=== PATIENT | male | born 1960 | race American Indian/Alaskan Native ===

== ENCOUNTER 2020-01-12 11:26 | Observation (INO) | payer BC ==
[2020-01-12] MEDS ORDERED: MECLIZINE 25 MG TAB PO ONE (12:48)
[2020-01-12 13:13] LABS: Basophils % (Auto) 0.2 % (0.0-1.8); Eosinophils # (Auto) 0.2 K/mm3 (0.0-0.4); Hematocrit 45.8 % (35.5-45.6); Hemoglobin 15.3 gm/dl (11.8-15.2); Lymphocytes # (Auto) 1.9 K/mm3 (1.2-5.4); Lymphocytes % (Auto) 31.5 % (13.4-35.0); Mean Corpuscular HGB Conc 33 % (32-34); Mean Corpuscular Volume 84 fl (84-94); Monocytes # (Auto) 0.5 K/mm3 (0.0-0.8); Monocytes % (Auto) 7.8 % (0.0-7.3); Platelet Count 254 K/mm3 (140-440); Red Blood Count 5.45 M/mm3 (3.65-5.03); Red Cell Distribution Width 14.7 % (13.2-15.2)
--- NOTE | 2020-01-12 13:16 | Emergency Department Report ---
HPI - General Chief Complaint: Syncope Time Seen by Provider: 01/12/20 12:22 - HPI HPI: Room 21 The patient is a 59-year-old male present with a chief complaint of syncope. Patient states he developed frontal sinus pressure 01/08/2020. The patient sta rodney 01/10/2020 he developed dizziness while at work. Patient states the dizziness will come on with standing quickly. The patient states he told himself if his symptoms persisted he was his primary physician. Today when he awakened he continues to have the same dizziness so he went to his primary physician's office. The patient states he was there been evaluated and the primary physician was explaining to him about vertigo when he stood up got dizzy and had a syncopal episode. The patient was subsequently sent to the ED for further evaluation. Patient denied having chest pain headache or pain of any type. Patient denies shortness of breath. Patient admits to 7 episodes of nausea but denies vomiting. Patient denies melena or bright red blood per rectum. Patient currently denies complaints ED Past Medical Hx - Past Medical History Hx Hypertension: Yes - Surgical History Past Surgical History?: No - Family History Family history: no significant - Social History Smoking Status: Never Smoker Substance Use Type: None (Denies illicit drug use), Alcohol (Rarely) - Medications Home Medications: Home Medications Medication Instructions Recorded Confirmed Last Taken Type Cholecalciferol Vit D3 [Vitamin D3 50,000 unit PO QDAY 01/12/20 01/12/20 Unknown History 1,000 UNIT TAB] Olmesartan/Amlodipin/Hcthiazid 1 tab PO DAILY 01/12/20 01/12/20 Unknown History [Tribenzor 40-10-25 mg Tablet] Tadalafil [Cialis] 5 mg PO DAILY 01/12/20 01/12/20 Unknown History bisoproloL fumarate [Bisoprolol 10 mg PO DAILY 01/12/20 01/12/20 Unknown History Fumarate] ED Review of Systems ROS: Stated complaint: SYNCOPE Other details as noted in HPI Constitutional: no symptoms reported Eyes: vision change ENT: denies: throat pain Respiratory: denies: shortness of breath Cardiovascular: denies: chest pain Endocrine: no symptoms reported Gastrointestinal: denies: abdominal pain Genitourinary: denies: dysuria Musculoskeletal: denies: back pain Neurological: vertigo. denies: headache Physical Exam - Physical Exam Vital Signs: Vital Signs 01/12/20 11:36 Temperature 98.7 F Pulse Rate 50 L Respiratory 18 Rate Blood Pressure 146/77 O2 Sat by Pulse 100 Oximetry Physical Exam: GENERAL: The patient is well-developed well-nourished male lying on stretcher not appearing to be in acute distress. [] HEENT: Normocephalic. Atraumatic. Extraocular motions are intact. Patient has moist mucous membranes. There is no nystagmus NECK: Supple. Trachea midline CHEST/LUNGS: Clear to auscultation. There is no respiratory distress noted. HEART/CARDIOVASCULAR: Regular. There is no tachycardia. There is no gallop rub or murmur. ABDOMEN: Abdomen is soft, nontender. Patient has normal bowel sounds. There is no abdominal distention. SKIN: There is no rash. There is no edema. There is no diaphoresis. NEURO: The patient is awake, alert, and oriented. The patient is cooperative. The patient has no focal neurologic deficits. The patient has normal speech. Cranial nerves II through XII grossly intact. No dysmetria noted with [id number] bilaterally. MUSCULOSKELETAL: There is no evidence of acute injury. ED Course Vital Signs 01/12/20 11:36 Temperature 98.7 F Pulse Rate 50 L Respiratory 18 Rate Blood Pressure 146/77 O2 Sat by Pulse 100 Oximetry - Consultations Consultation #1: 01/12/20 11:22 Prehospital EKG sent to and discussed with Dr. Natarajan- no STEMI. LVH with strain pattern. Repeat EKG when patient arrives in ED ED Medical Decision Making - Lab Data Result diagrams: 01/12/20 12:58 01/12/20 12:58 Laboratory Tests 01/12/20 01/12/20 01/12/20 12:58 12:58 12:58 WBC 6.2 RBC 5.45 H Hgb 15.3 H Hct 45.8 H MCV 84 MCH 28 MCHC 33 RDW 14.7 Plt Count 254 Lymph % (Auto) 31.5 [place] % (Auto) 7.8 H Eos % (Auto) 3.0 Baso % (Auto) 0.2 Lymph # (Auto) 1.9 [place] # (Auto) 0.5 Eos # (Auto) 0.2 Baso # (Auto) 0.0 Seg Neutrophils % 57.5 Seg Neutrophils # 3.5 PT 13.0 INR 0.96 APTT 27.5 D-Dimer 149.43 Sodium 140 Potassium 4.8 Chloride 100.2 Carbon Dioxide 32 H Anion Gap 13 BUN 11 Creatinine 1.0 Estimated GFR > 60 BUN/Creatinine Ratio 11 Glucose 93 Calcium 10.2 Total Bilirubin 0.60 AST 23 ALT 20 Alkaline Phosphatase 75 Total Creatine Kinase 265 H CK-MB (CK-2) 5.4 H CK-MB (CK-2) Rel Index 2.0 Troponin T < 0.010 Total Protein 7.8 Albumin 4.2 Albumin/Globulin Ratio 1.2 - EKG Data -: EKG Interpreted by Me EKG shows normal: sinus rhythm Rate: normal - EKG Data When compared to previous EKG there are: previous EKG unavailable Interpretation: nonspecific ST-T wave amaury, LVH (With strain) - Differential Diagnosis Orthostasis, vertigo, syncope, PE, ACS, symptomatic anemia Critical care attestation.: If time is entered above; I have spent that time in minutes in the direct care of this critically ill patient, excluding procedure time. ED Disposition Clinical Impression: Syncope, Hypertension Disposition: DC-09 OP ADMIT IP TO THIS HOSP Is pt being admited?: Yes Does the pt Need Aspirin: Yes Condition: Fair Instructions: Syncope (ED), Hypertension (ED) Referrals: CORY STUBBS MD [Primary Care Provider] - 3-5 Days Time of Disposition: 16:05 (Hospitalist notified (Dr Richards))
[2020-01-12 13:20] LABS: INR 0.96 (0.87-1.13)
[2020-01-12 13:21] LABS: Partial Thromboplastin Time 27.5 Sec. (24.2-36.6)
[2020-01-12 13:38] LABS: Alanine Aminotransferase 20 units/L (7-56); Albumin 4.2 g/dL (3.9-5); BUN/Creatinine Ratio 11; Blood Urea Nitrogen 11 mg/dL (9-20); Calcium 10.2 mg/dL (8.4-10.2); Creatine Kinase MB 5.4 ng/mL (0.0-4.0); Hemolysis Index 8
[2020-01-12] MEDS ORDERED: SODIUM CHLORIDE 0.9% 1000 ML 1,000 ML ONE (14:25)
[2020-01-12] MEDS ORDERED: SODIUM CHLORIDE 0.9% 1000 ML 1,000 ML IV ONE (14:26)
--- NOTE | 2020-01-12 15:18 | Cat Scan Report ---
CT HEAD WITHOUT CONTRAST INDICATION / CLINICAL INFORMATION: Dizziness, syncope. TECHNIQUE: Axial imaging performed from the skull apex through the skull base without the use of cont rast. Sagittal and coronal reformatted images. All CT scans at this location are performed using CT dose reduction for ALARA by means of automated exposure control. COMPARISON: None available. FINDINGS: CEREBRAL PARENCHYMA: No significant abnormality. No acute territorial infarct. HEMORRHAGE: None. EXTRA-AXIAL SPACES: Normal in size and morphology for the patient's age. VENTRICULAR SYSTEM: Normal in size and morphology for the patient's age. MIDLINE SHIFT OR HERNIATION: None. CEREBELLUM / BRAINSTEM: No significant abnormality. CALVARIUM: No significant abnormality. ORBITS: Normal as visualized. PARANASAL SINUSES / MASTOID AIR CELLS: Normal as visualized. SOFT TISSUES of HEAD: No significant abnormality. ADDITIONAL FINDINGS: None. IMPRESSION: No acute intracranial abnormality. Signer Name: Luis Felipe Gambino Jr, MD Signed: 01/12/2020 3:13 PM Workstation Name: [id number]
[2020-01-12] MEDS ORDERED: cloNIDine 0.2 MG TAB ONE (16:01)
[2020-01-12] MEDS ORDERED: cloNIDine 0.2 MG TAB PO ONE ×2 (16:03)
[2020-01-12] MEDS ORDERED: oxyCODONE /ACETAMINOPHEN 5-325MG TAB PO PRN (21:06)
[2020-01-12] MEDS ORDERED: ONDANSETRON 4 MG/2 ML INJ IV PRN (21:06)
[2020-01-12] MEDS ORDERED: HYDROmorphone 1 MG/1 ML INJ IV PRN (21:06)
[2020-01-12] MEDS ORDERED: ACETAMINOPHEN 325 MG TAB PO PRN (21:06)
--- NOTE | 2020-01-12 21:10 | History and Physical Report ---
History of Present Illness Date of examination: 01/12/20 Date of admission: 01/12/20 16:06 Chief complaint: Passed out for a few seconds History of present illness: 59-year-old male with history of hypertension comes in for dizziness and passing out today while getting up from a chair. Patient apparently went to his primary care physician for his dizziness annual examination room while he was getting up felt dizzy and passed out. Patient was sent from the PCP to emergency room for further evaluation. Patient denies any melanotic stools or vomiting blood. Has nausea but no vomiting. Dizziness persists. Also slight chest pain. Retrosternal. No shortness of breath no radiation. - Past Medical History Hx Hypertension: Yes - Surgical History Past Surgical History?: No - Family History Family history: no significant - Social History Smoking Status: Never Smoker Substance Use Type: None (Denies illicit drug use), Alcohol (Rarely) - Medications Home Medications: Home Medications Medication Instructions Recorded Confirmed Last Taken Type Cholecalciferol Vit D3 [Vitamin D3 50,000 unit PO QDAY 01/12/20 01/12/20 Unknown History 1,000 UNIT TAB] Olmesartan/Amlodipin/Hcthiazid 1 tab PO DAILY 01/12/20 01/12/20 Unknown History [Tribenzor 40-10-25 mg Tablet] Tadalafil [Cialis] 5 mg PO DAILY 01/12/20 01/12/20 Unknown History bisoproloL fumarate [Bisoprolol 10 mg PO DAILY 01/12/20 01/12/20 Unknown History Fumarate] Review of Systems ROS: Stated complaint: SYNCOPE Other details as noted in HPI Constitutional: no symptoms reported Eyes: vision change ENT: denies: throat pain Respiratory: denies: shortness of breath Cardiovascular: denies: chest pain Endocrine: no symptoms reported Gastrointestinal: denies: abdominal pain Genitourinary: denies: dysuria Musculoskeletal: denies: back pain Neurological: vertigo. denies: headache Medications and Allergies Allergies Allergy/AdvReac Type Severity Reaction Status Date / Time No Known Allergies Allergy Unverified 01/12/20 11:36 Home Medications Medication Instructions Recorded Confirmed Last Taken Type Cholecalciferol Vit D3 [Vitamin D3 50,000 unit PO QDAY 01/12/20 01/12/20 Unknown History 1,000 UNIT TAB] Olmesartan/Amlodipin/Hcthiazid 1 tab PO DAILY 01/12/20 01/12/20 Unknown History [Tribenzor 40-10-25 mg Tablet] Tadalafil [Cialis] 5 mg PO DAILY 01/12/20 01/12/20 Unknown History bisoproloL fumarate [Bisoprolol 10 mg PO DAILY 01/12/20 01/12/20 Unknown History Fumarate] Exam - Constitutional Vitals: Temp Pulse Resp BP Pulse Ox 97.3 F L 49 L 16 134/70 98 01/12/20 20:41 01/12/20 20:41 01/12/20 20:41 01/12/20 20:41 01/12/20 20:41 General appearance: Present: no acute distress, well-nourished - EENT Eyes: Present: PERRL ENT: hearing intact, clear oral mucosa - Neck Neck: Present: supple, normal ROM - Respiratory Respiratory effort: normal Respiratory: bilateral: CTA - Cardiovascular Heart rate: 78 Rhythm: regular Heart Sounds: Present: S1 & S2. Absent: rub, click - Extremities Extremities: no ischemia, pulses intact, pulses symmetrical, No edema Peripheral Pulses: within normal limits - Abdominal General gastrointestinal: Present: soft, non-tender, non-distended, normal bowel sounds Male genitourinary: Present: normal - Rectal Rectal Exam: deferred - Integumentary Integumentary: Present: clear, warm, dry - Musculoskeletal Musculoskeletal: gait normal, strength equal bilaterally - Psychiatric Psychiatric: appropriate mood/affect, intact judgment & insight - Neurologic Neurologic: CNII-XII intact, moves all extremities - Allied Health Allied health notes reviewed: nursing, case management HEART Score - HEART Score History: Moderately suspicious EKG: Non-specific Age: 45-65 Risk factors: 1-2 risk factors Troponin: Troponin T < 0.010 ng/mL (0.00-0.029) 01/12/20 12:58 Troponin: < normal limit HEART Score: 4 - Critical Actions Critical Actions: >7 pts:50-65% risk of adverse cardiac event. Early invasive measures Results - Labs CBC & Chem 7: 01/13/20 05:21 01/13/20 05:21 Labs: Laboratory Last Values WBC 6.2 K/mm3 (4.5-11.0) 01/12/20 12:58 RBC 5.45 M/mm3 (3.65-5.03) H 01/12/20 12:58 Hgb 15.3 gm/dl (11.8-15.2) H 01/12/20 12:58 Hct 45.8 % (35.5-45.6) H 01/12/20 12:58 MCV 84 fl (84-94) 01/12/20 12:58 MCH 28 pg (28-32) 01/12/20 12:58 MCHC 33 % (32-34) 01/12/20 12:58 RDW 14.7 % (13.2-15.2) 01/12/20 12:58 Plt Count 254 K/mm3 (140-440) 01/12/20 12:58 Lymph % (Auto) 31.5 % (13.4-35.0) 01/12/20 12:58 [place] % (Auto) 7.8 % (0.0-7.3) H 01/12/20 12:58 Eos % (Auto) 3.0 % (0.0-4.3) 01/12/20 12:58 Baso % (Auto) 0.2 % (0.0-1.8) 01/12/20 12:58 Lymph # (Auto) 1.9 K/mm3 (1.2-5.4) 01/12/20 12:58 [place] # (Auto) 0.5 K/mm3 (0.0-0.8) 01/12/20 12:58 Eos # (Auto) 0.2 K/mm3 (0.0-0.4) 01/12/20 12:58 Baso # (Auto) 0.0 K/mm3 (0.0-0.1) 01/12/20 12:58 Seg Neutrophils % 57.5 % (40.0-70.0) 01/12/20 12:58 Seg Neutrophils # 3.5 K/mm3 (1.8-7.7) 01/12/20 12:58 PT 13.0 Sec. (12.2-14.9) 01/12/20 12:58 INR 0.96 (0.87-1.13) 01/12/20 12:58 APTT 27.5 Sec. (24.2-36.6) 01/12/20 12:58 D-Dimer 149.43 ng/mlDDU (0-234) 01/12/20 12:58 Sodium 140 mmol/L (137-145) 01/12/20 12:58 Potassium 4.8 mmol/L (3.6-5.0) 01/12/20 12:58 Chloride 100.2 mmol/L (98-107) 01/12/20 12:58 Carbon Dioxide 32 mmol/L (22-30) H 01/12/20 12:58 Anion Gap 13 mmol/L 01/12/20 12:58 BUN 11 mg/dL (9-20) 01/12/20 12:58 Creatinine 1.0 mg/dL (0.8-1.3) 01/12/20 12:58 Estimated GFR > 60 ml/min 01/12/20 12:58 BUN/Creatinine Ratio 11 % 01/12/20 12:58 Glucose 93 mg/dL (75-100) 01/12/20 12:58 Calcium 10.2 mg/dL (8.4-10.2) 01/12/20 12:58 Total Bilirubin 0.60 mg/dL (0.1-1.2) 01/12/20 12:58 AST 23 units/L (5-40) 01/12/20 12:58 ALT 20 units/L (7-56) 01/12/20 12:58 Alkaline Phosphatase 75 units/L (35-129) 01/12/20 12:58 Total Creatine Kinase 265 units/L (55-170) H 01/12/20 12:58 CK-MB (CK-2) 5.4 ng/mL (0.0-4.0) H 01/12/20 12:58 CK-MB (CK-2) Rel Index 2.0 (0-4) 01/12/20 12:58 Troponin T < 0.010 ng/mL (0.00-0.029) 01/12/20 12:58 Total Protein 7.8 g/dL (6.3-8.2) 01/12/20 12:58 Albumin 4.2 g/dL (3.9-5) 01/12/20 12:58 Albumin/Globulin Ratio 1.2 % 01/12/20 12:58 Short CBC 01/12/20 01/13/20 Range/Units 12:58 05:21 WBC 6.2 6.2 (4.5-11.0) K/mm3 Hgb 15.3 H 13.9 (11.8-15.2) gm/dl Hct 45.8 H 42.6 (35.5-45.6) % Plt Count 254 243 (140-440) K/mm3 BMP 01/12/20 01/13/20 12:58 05:21 Sodium 140 138 Potassium 4.8 3.6 D Chloride 100.2 102.5 Carbon Dioxide 32 H 26 BUN 11 19 Creatinine 1.0 1.1 Glucose 93 93 Calcium 10.2 8.9 Cardiac Enzymes 01/12/20 01/12/20 01/13/20 Range/Units 12:58 21:32 05:21 Total Creatine Kinase 265 H (55-170) units/L CK-MB (CK-2) 5.4 H (0.0-4.0) ng/mL Troponin T < 0.010 < 0.010 < 0.010 (0.00-0.029) ng/mL Liver Function 01/12/20 01/13/20 Range/Units 12:58 05:21 Total Bilirubin 0.60 0.40 (0.1-1.2) mg/dL AST 23 20 (5-40) units/L ALT 20 16 (7-56) units/L Alkaline Phosphatase 75 65 (35-129) units/L Albumin 4.2 3.6 L (3.9-5) g/dL - Imaging and Cardiology EKG: report reviewed (Normal sinus rhythm heart rate of 78/min no acute ST-T wave changes) CT Scan - head: report reviewed (No acute findings) Assessment and Plan Advance Directives: Yes (Full code) VTE prophylaxis?: Chemical Plan of care discussed with patient/family: Yes - Patient Problems (1) Syncope Current Visit: Yes Status: Acute Plan to address problem: Syncope work-up Carotid Doppler scan and echocardiogram to rule out any valvular abnormalities are aortic stenosis IV fluids (2) Chest pain Current Visit: Yes Status: Acute Plan to address problem: Serial troponins and Lexiscan in the morning (3) Hypertension Current Visit: Yes Status: Chronic Qualifiers: Hypertension type: essential hypertension Qualified Code(s): I10 - Essential (primary) hypertension Plan to address problem: Continue antihypertensives (4) DVT prophylaxis Current Visit: Yes Status: Acute Plan to address problem: On heparin and GI prophylaxis
[2020-01-12] MEDS ORDERED: OLMESARTAN PO SCH (21:15)
[2020-01-12] MEDS ORDERED: BISOPROLOL FUMARATE 10 MG PO SCH (21:15)
[2020-01-12] MEDS ORDERED: [UNRECOGNIZED DRUG - OTHER] PO SCH (21:15)
[2020-01-12] MEDS ORDERED: HCTHIAZID PO SCH (21:15)
[2020-01-12] MEDS ORDERED: SODIUM CHLORIDE 0.9% 1000 ML 1,000 ML IV SCH (21:15)
[2020-01-12] MEDS ORDERED: AMLODIPIN PO SCH (21:15)
[2020-01-12] MEDS ORDERED: CHOLECALCIFEROL (VIT D3) 1000 UNIT (25 mcg) TAB PO SCH (22:00)
[2020-01-12] MEDS: FAMOTIDINE 20 MG/2 ML INJ IV SCH (22:55)
[2020-01-13 05:44] LABS: Basophils % (Auto) 0.3 % (0.0-1.8); Eosinophils # (Auto) 0.2 K/mm3 (0.0-0.4); Hematocrit 42.6 % (35.5-45.6); Hemoglobin 13.9 gm/dl (11.8-15.2); Lymphocytes # (Auto) 2.5 K/mm3 (1.2-5.4); Lymphocytes % (Auto) 40.7 % (13.4-35.0); Mean Corpuscular HGB Conc 33 % (32-34); Mean Corpuscular Volume 85 fl (84-94); Monocytes # (Auto) 0.6 K/mm3 (0.0-0.8); Monocytes % (Auto) 9.2 % (0.0-7.3); Platelet Count 243 K/mm3 (140-440); Red Cell Distribution Width 14.6 % (13.2-15.2)
[2020-01-13 06:32] LABS: Alanine Aminotransferase 16 units/L (7-56); Albumin 3.6 g/dL (3.9-5); BUN/Creatinine Ratio 17; Blood Urea Nitrogen 19 mg/dL (9-20); Calcium 8.9 mg/dL (8.4-10.2); Hemolysis Index 16
[2020-01-13] MEDS ORDERED: LOSARTAN 50 MG TAB PO SCH (10:00)
[2020-01-13] MEDS ORDERED: amLODIPine 10 MG TAB PO SCH (10:00)
[2020-01-13] MEDS ORDERED: REGADENOSON 0.4 MG/5 ML INJ IV ONE ×2 (10:11→12:00)
[2020-01-13] MEDS: FAMOTIDINE 20 MG/2 ML INJ IV SCH (14:25)
[2020-01-13 17:05] VITALS: BP 156/76
--- NOTE | 2020-01-13 19:02 | Discharge Summary ---
Providers - Providers Date of Admission: 01/12/20 16:06 Date of discharge: 01/13/20 Attending physician: DINO ABREU Primary care physician: CORY STUBBS Hospitalization Condition: Fair Hospital course: History of present illness: 59-year-old male with history of hypertension comes in for dizziness and passing out today while getting up from a chair. Patient apparently went to his primary care physician for his dizziness annual examination room while he was getting up felt dizzy and passed out. Patient was sent from the PCP to emergency room for further evaluation. Patient denies any melanotic stools or vomiting blood. Has nausea but no vomiting. Dizziness persists. Also slight chest pain. Retrosternal. No shortness of breath no radiation. Echocardiogram was normal with normal ejection fraction (1) Autonomic imbalance Current Visit: Yes Status: Acute Plan to address problem: Echocardiogram was normal No further syncopal attacks Troponins were normal (2) Chest pain Current Visit: Yes Status: Acute Plan to address problem: Serial troponins and Lexiscan in the morning (3) Hypertension Current Visit: Yes Status: Chronic Qualifiers: Hypertension type: essential hypertension Qualified Code(s): I10 - Essenti al (primary) hypertension Plan to address problem: Continue antihypertensives Disposition: DC-01 TO HOME OR SELFCARE - Discharge Diagnoses (1) Syncope Status: Acute (2) Chest pain Status: Acute (3) Hypertension Status: Chronic Qualifiers: Hypertension type: essential hypertension Qualified Code(s): I10 - Essential (primary) hypertension (4) DVT prophylaxis Status: Acute Core Measure Documentation - Palliative Care Palliative Care/ Comfort Measures: Not Applicable - Core Measures Any of the following diagnoses?: none Exam - Constitutional Vitals: Temp Pulse Resp BP Pulse Ox 98.6 F 54 L 18 156/76 95 01/13/20 17:04 01/13/20 17:09 01/13/20 17:04 01/13/20 17:04 01/13/20 17:04 General appearance: Present: no acute distress, well-nourished - EENT Eyes: Present: PERRL ENT: hearing intact, clear oral mucosa - Neck Neck: Present: supple, normal ROM - Respiratory Respiratory effort: normal Respiratory: bilateral: CTA - Cardiovascular Heart rate: 78 Rhythm: regular Heart Sounds: Present: S1 & S2. Absent: rub, click - Extremities Extremities: pulses symmetrical, No edema Peripheral Pulses: within normal limits - Abdominal General gastrointestinal: Present: soft, non-tender, non-distended, normal bowel sounds Male genitourinary: Present: normal - Integumentary Integumentary: Present: clear, warm, dry - Musculoskeletal Musculoskeletal: gait normal, strength equal bilaterally - Psychiatric Psychiatric: appropriate mood/affect, intact judgment & insight - Neurologic Neurologic: CNII-XII intact, moves all extremities Plan Activity: no restrictions Diet: low salt Follow up with: CORY STUBBS MD [Primary Care Provider] - 3-5 Days Forms: Work/School Excuse Out Patient, Work/School Release Form Prescriptions: bisoproloL fumarate [Bisoprolol Fumarate] 10 mg PO DAILY #30 Olmesartan/Amlodipin/Hcthiazid [Tribenzor 40-10-25 mg Tablet] 1 tab PO DAILY #30
--- NOTE | 2020-01-13 19:56 | Vascular Lab Report ---
CLINICAL DATA: syncope TECHNICAL DATA: Imaging was performed from the base of the neck to the skull base using duplex sonography and color-f low imaging with emphasis on the carotid and vertebral arterial systems. RIGHT CAROTID ARTERY: The right internal carotid artery, right external carotid, and right common carotid artery all well i jensen and patent. Mild atherosclerotic plaque present at the carotid bifurcation. Right common carotid artery peak systolic velocity 78.4 cm/sec Right internal carotid artery peak systolic velocity 83 cm/sec Right internal carotid artery end diastolic velocity 22cm/sec Right internal carotid artery/right common carotid artery ratio 1.08 Vertebral artery flow is antegrade. LEFT CAROTID ARTERY The left internal carotid artery, left external carotid, and left common carotid artery all well imag ed and patent. Mild atherosclerotic plaque present at the carotid bifurcation. Left common carotid artery peak systolic velocity 78.1 cm/sec Left internal carotid artery peak systolic velocity 76 cm/sec Left internal carotid artery end diastolic velocity 22 cm/sec Left internal carotid artery/right common carotid artery ratio 0.98 Normal antegrade flow of the vertebral arteries. Please see worksheet for all velocities. IMPRESSION: 1. Sonographic NASCET Index This study proposed the incorporation of distal ICA flow velocity information on the conventional car otid Doppler study improving the diagnostic accuracy of PSV 1. Right and left internal carotids demonstrate <15% stenosis: * deceleration spectral broadening with a peak systolic velocity (PSV) <125 cm/s . 2. Less than 50% stenosis common carotid arteries. 3. Less than 50% stenosis external carotid arteries. 4. Antegrade flow both vertebral arteries. Signer Name: Gilmer Duggan MD Signed: 01/13/2020 7:51 PM Workstation Name: [id number]
--- NOTE | 2020-01-13 21:09 | Treadmill Report ---
LEFT VENTRICLE: Left ventricular chamber size at the upper limits of normal. Perfusion study demonstrates mild diaphragmatic attenuation artifact, otherwise fairly homogeneous uptake of the tracer in all segments, no significant defects identified. Gated analysis demonstrates left ventricular systolic function at the lower limits of normal, ejection fraction 49%. CONCLUSION: No demonstrable ischemia on thallium perfusion imaging. Recommend clinical correlation. JOB# [id number] CA/NTS
== END 2020-01-13 18:46 | disposition home or self-care (01) ==
LOC: ED 11:26 → 4A 16:06
PROVIDERS: ADMIT Internal Medicine; ATTEND Internal Medicine
DX: R55 Syncope and collapse (principal); R07.89 Other chest pain; I10 Essential (primary) hypertension; G90.8 Other disorders of autonomic nervous system; Z79.899 Other long term (current) drug therapy
CPT/HCPCS: 36415; 70450; 78452; 80053; 82550; 82553; 83036; 84484; 85025; 85379; 85610; 85730; 93005; 93017; 93306; 93880; 96361; 96374; 96376; 99284; A9502; G0378; J2785; J7030

== ENCOUNTER 2020-03-07 10:57 | Emergency (ER) | payer BC ==
[2020-03-07] MEDS ORDERED: SODIUM CHLORIDE 0.9% 1000 ML 1,000 ML IV ONE ×3 (12:55→15:18)
--- NOTE | 2020-03-07 13:04 | Emergency Department Report ---
ED Syncope HPI - General Chief Complaint: Dizziness Stated Complaint: SYNCOPAL EPOSIDE Time Seen by Provider: 03/07/20 12:45 Source: patient Exam Limitations: no limitations - History of Present Illness Initial Comments: 59-year-old male, history of hypertension, presents to ED with dizziness. Patient states over the last 4 days he has been feeling dizzy and lightheaded with sitting up and standing. Patient reports some associated nausea, however he denies any vomiting. Patient states he went to his doctor's office, Dr. García, earlier today because he was not feeling well. Patient reports at the doctor's office his blood pressure was found to be low, so EMS was called to the office to bring patient to the ER. Patient states he was admitted last month for a similar presentation in which he passed out. Upon discharge last month, patient states he was not told to discontinue any of his blood pressure medications. Also states none of his dosages were changed at that time either. Patient's current medication list from his doctor's office states that he is clive ing Tribenzor, meclizine, cholecalciferol, and Cialis. Patient denies passing out today. He denies any headache, fever, chest pain, shortness of breath, vomiting, diarrhea. Patient denies any drug or alcohol use. During last month's admission for syncope, ECHO and stress test were within normal limits. Timing/Prior Episodes: recent history, other (Near syncope today) Context: sitting, standing Loss of Consciousness: no loss of consciousness Current Symptoms: back to normal. denies: chest pain, headache - Related Data Allergies/Adverse Reactions: Allergies No Known Allergies Allergy (Unverified 01/12/20 11:36) Home Medications: Ambulatory Orders Cholecalciferol Vit D3 [Vitamin D3 1,000 UNIT TAB] 50,000 unit PO QDAY 01/12/20 Tadalafil [Cialis] 5 mg PO DAILY 01/12/20 Olmesartan/Amlodipin/Hcthiazid [Tribenzor 40-10-25 mg Tablet] 1 tab PO DAILY #30 01/13/20 bisoproloL fumarate [Bisoprolol Fumarate] 10 mg PO DAILY #30 01/13/20 ED Review of Systems ROS: Stated complaint: SYNCOPAL EPOSIDE Other details as noted in HPI Comment: All other systems reviewed and negative Constitutional: denies: chills, fever Respiratory: denies: cough, shortness of breath Cardiovascular: denies: chest pain, palpitations Gastrointestinal: nausea. denies: abdominal pain, vomiting, diarrhea Neurological: denies: headache, weakness, paresthesias ED Past Medical Hx - Past Medical History Hx Hypertension: Yes Hx Congestive Heart Failure: No Hx Diabetes: No Hx Asthma: No Hx COPD: No - Social History Smoking Status: Unknown if ever smoked - Medications Home Medications: Home Medications Medication Instructions Recorded Confirmed Last Taken Type Cholecalciferol Vit D3 [Vitamin D3 50,000 unit PO QDAY 01/12/20 01/12/20 Unknown History 1,000 UNIT TAB] Tadalafil [Cialis] 5 mg PO DAILY 01/12/20 01/12/20 Unknown History Olmesartan/Amlodipin/Hcthiazid 1 tab PO DAILY #30 01/13/20 Unknown Rx [Tribenzor 40-10-25 mg Tablet] bisoproloL fumarate [Bisoprolol 10 mg PO DAILY #30 01/13/20 Unknown Rx Fumarate] ED Physical Exam - General Limitations: No Limitations General appearance: alert, in no apparent distress - Head Head exam: Present: atraumatic, normocephalic - Eye Eye exam: Present: normal appearance, EOMI - ENT ENT exam: Present: mucous membranes moist - Neck Neck exam: Present: normal inspection - Respiratory Respiratory exam: Present: normal lung sounds bilaterally. Absent: respiratory distress - Cardiovascular Cardiovascular Exam: Present: regular rate, normal rhythm - GI/Abdominal GI/Abdominal exam: Present: soft. Absent: distended, tenderness - Extremities Exam Extremities exam: Present: normal inspection - Neurological Exam Neurological exam: Present: alert, oriented X3, CN II-XII intact. Absent: motor sensory deficit - Psychiatric Psychiatric exam: Present: normal affect, normal mood - Skin Skin exam: Present: warm, dry, intact, normal color ED Course Vital Signs 03/07/20 03/07/20 03/07/20 12:24 13:42 13:48 Temperature 98.5 F 98.3 F Pulse Rate 64 53 L Respiratory 20 17 17 Rate Blood Pressure 76/43 Blood Pressure 106/55 [Right] O2 Sat by Pulse 95 99 99 Oximetry 03/07/20 03/07/20 14:43 17:39 Temperature 97.8 F Pulse Rate 54 L 56 L Respiratory 19 14 Rate Blood Pressure Blood Pressure 113/58 148/63 [Right] O2 Sat by Pulse 99 99 Oximetry ED Medical Decision Making - Lab Data Result diagrams: 03/07/20 13:02 03/07/20 16:38 - EKG Data -: EKG Interpreted by Me EKG shows normal: sinus rhythm, axis, intervals, QRS complexes, ST-T waves Rate: normal - EKG Data Interpretation: no acute changes - Radiology Data Radiology results: report reviewed, image reviewed - Medical Decision Making 59-year-old male presents to ED with dizziness and lightheadedness. Patient found to be hypotensive, systolic blood pressure in the 70s. Patient was admitted last month for similar symptoms in which he actually had a syncopal episode. Today, EKG is unremarkable, troponin is negative. Chest x-ray is negative. Labs do show some acute renal insufficiency compared to last month. This is likely due to his hypotension and hypovolemia. Patient given 3 L normal saline bolus. He is currently feeling much better. Blood pressure is now improved to systolic in the 140s. Repeat BUN and creatinine show improvement. Earlier creatinine was 2.6, repeat is 1.9. Potassium is normal. Patient will be discharged home at this time. He is encouraged to drink plenty water, stay hydrated. Patient is also on several blood pressure lowering medications including Tribenzor and Cialis. Following patient's admission last month, he reports he was not advised to stop any of his medications. These may be contributing to his hypotension. Patient has been advised to stop these medications and follow-up with his PCP on tomorrow. He has also been given information for follow-up with nephrology. - Differential Diagnosis Dehydration, ACS, medication side effect Critical care attestation.: If time is entered above; I have spent that time in minutes in the direct care of this critically ill patient, excluding procedure time. ED Disposition Clinical Impression: Hypotension, Acute renal insufficiency Disposition: DC-01 TO HOME OR SELFCARE Is pt being admited?: No Condition: Stable Instructions: Acute Kidney Injury, Adult, Hypotension, [id number], Syncope, [id number], Dehydration, Adult Additional Instructions: - Stop taking your Tribenzor and Cialis. - Call Dr García tomorrow for follow-up appointment. - Drink plenty of water to stay hydrated. - Make follow-up appointment with kidney doctor ([employer]auffeur airport limousine). Referrals: BRAIN VARELA MD [Staff Physician] - 3-5 Days PRIMARY CARE, [Primary Care Provider] - [facility] Time of Disposition: 18:21
--- NOTE | 2020-03-07 13:23 | XRay Report ---
CHEST 1 VIEW 03/07/2020 12:17 PM INDICATION / CLINICAL INFORMATION: syncope. COMPARISON: None available. FINDINGS: SUPPORT DEVICES: None. HEART / MEDIASTINUM: No significant abnormality. LUNGS / PLEURA: No significant pulmonary or pleural abnormality. No pneumothorax. ADDITIONAL FINDINGS: No significant additional findings. IMPRESSION: 1. No acute findings. Signer Name: Dario Miguel MD Signed: 03/07/2020 1:18 PM Workstation Name: [id number]
[2020-03-07 13:42] LABS: INR 1.03 (0.87-1.13)
[2020-03-07 13:43] LABS: Partial Thromboplastin Time 31.4 Sec. (24.2-36.6)
[2020-03-07 13:49] LABS: Alanine Aminotransferase 26 units/L (7-56); Albumin 3.4 g/dL (3.9-5); BUN/Creatinine Ratio 12; Bilirubin,Direct 0.2 mg/dL (0-0.2); Blood Urea Nitrogen 32 mg/dL (9-20); Hemolysis Index 23
[2020-03-07 14:02] LABS: Basophils # (Auto) 0.1 K/mm3 (0.0-0.1); Basophils % (Auto) 1.2 % (0.0-1.8); Eosinophils % (Auto) 0.2 % (0.0-4.3); Hematocrit 44.2 % (35.5-45.6); Hemoglobin 14.9 gm/dl (11.8-15.2); Lymphocytes # (Auto) 1.1 K/mm3 (1.2-5.4); Lymphocytes % (Auto) 21.5 % (13.4-35.0); Mean Corpuscular HGB Conc 34 % (32-34); Mean Corpuscular Volume 84 fl (84-94); Monocytes # (Auto) 0.6 K/mm3 (0.0-0.8); Monocytes % (Auto) 12.8 % (0.0-7.3); Red Blood Count 5.24 M/mm3 (3.65-5.03); Red Cell Distribution Width 14.3 % (13.2-15.2)
[2020-03-07 14:12] LABS: Platelet Count 199 K/mm3 (140-440)
[2020-03-07 17:25] LABS: Bilirubin,Urine NEG (Negative); Blood,Urine NEG (Negative); Color,Urine Amber (Yellow); Mucus,Urine FEW /HPF; RBC,Urine < 1.0 /HPF (0.0-6.0)
[2020-03-07 17:40] VITALS: BP 148/63
[2020-03-07 17:48] LABS: Protein,Urine >500 mg/dL (Negative)
== END 2020-03-07 19:05 | disposition home or self-care (01) ==
LOC: ED 10:57
DX: I95.9 Hypotension, unspecified (principal); N28.9 Disorder of kidney and ureter, unspecified; I10 Essential (primary) hypertension; Z79.899 Other long term (current) drug therapy
CPT/HCPCS: 36415; 71045; 80048; 80076; 81001; 82565; 84484; 84520; 85025; 85610; 85730; 93005; 96360; 96361; 99284; J7030

== ENCOUNTER 2021-01-22 13:08 | Emergency (ER) | payer BC ==
--- NOTE | 2021-01-22 13:29 | Emergency Department Report ---
HPI - General Time Seen by Provider: 01/22/21 13:17 - HPI HPI: 60-year-old -Hungarian male presents to the emergency department with complaint of a 3 to 4-day history of blurry vision. The patient went into see his primary care physician today, Dr. Stubbs, and when he described his symptoms they called EMS for transport to the emergency department for further evaluation. In route EMS did an EKG that had some elevation in the septal/anterior leads and they called in for concern of STEMI. This was shown to the supervisor toy assembly on-call. Dr Natarajan, who did not feel that the EKG showed morphology consistent with STEMI. The patient also denies having any chest pain. He describes the blurry vision as things appearing "build manager." He denies any headache, slurred speech, numbness or paresthesias, focal or lateralizing weakness, fever. Patient has a history of hypertension. He denies any tobacco or illicit drug use. ED Past Medical Hx - Past Medical History Hx Hypertension: Yes Hx Congestive Heart Failure: No Hx Diabetes: No Hx Asthma: No Hx COPD: No - Surgical History Past Surgical History?: No - Social History Smoking Status: Never Smoker Substance Use Type: None - Medications Home Medications: Home Medications Medication Instructions Recorded Confirmed Last Taken Type Cholecalciferol Vit D3 [Vitamin D3 50,000 unit PO QDAY 01/12/20 01/22/21 Unknown History 1,000 UNIT TAB] Tadalafil [Cialis] 5 mg PO DAILY 01/12/20 01/22/21 Unknown History Olmesartan/Amlodipin/Hcthiazid 1 tab PO DAILY #30 01/13/20 01/22/21 Unknown Rx [Tribenzor 40-10-25 mg Tablet] ED Review of Systems ROS: Stated complaint: STEMI/ORTHASTATIC Other details as noted in HPI Comment: All other systems reviewed and negative Constitutional: denies: chills, fever Eyes: vision change. denies: eye pain ENT: denies: ear pain, throat pain Respiratory: denies: cough, shortness of breath Cardiovascular: denies: chest pain, palpitations Gastrointestinal: denies: abdominal pain, vomiting Genitourinary: denies: dysuria, discharge Musculoskeletal: denies: back pain, arthralgia Skin: denies: rash, lesions Neurological: denies: headache, weakness Physical Exam - Physical Exam Vital Signs: Vital Signs 01/22/21 13:19 Temperature 98 F Pulse Rate 67 Respiratory 16 Rate Blood Pressure 92/63 [Left] O2 Sat by Pulse 98 Oximetry Physical Exam: GENERAL: The patient is well-developed well-nourished. HENT: Normocephalic. Atraumatic. Patient has moist mucous membranes. EYES: Extraocular motions are intact. No nystagmus. NECK: Supple. Trachea is midline. CHEST/LUNGS: Clear to auscultation. There is no respiratory distress noted. HEART/CARDIOVASCULAR: Regular. There is no tachycardia. There is no murmur. ABDOMEN: Abdomen is soft, nontender. Patient has normal bowel sounds. SKIN: Skin is warm and dry. NEURO: The patient is awake, alert, and oriented. The patient is cooperative. The patient has no focal neurologic deficits. Normal speech. Cranial nerves II through XII grossly intact. No facial asymmetry. No pronator drift or dysmetria. MUSCULOSKELETAL: There is no tenderness or deformity. There is no limitation range of motion. ED Course Vital Signs 01/22/21 13:19 Temperature 98 F Pulse Rate 67 Respiratory 16 Rate Blood Pressure 92/63 [Left] O2 Sat by Pulse 98 Oximetry ED Medical Decision Making - Lab Data Result diagrams: 01/22/21 13:28 01/22/21 13:28 Lab Results 01/22/21 01/22/21 01/22/21 Range/Units 13:28 13:28 13:28 WBC 5.6 (4.5-11.0) K/mm3 RBC 5.12 H (3.65-5.03) M/mm3 Hgb 14.0 (11.8-15.2) gm/dl Hct 43.1 (35.5-45.6) % MCV 84 (84-94) fl MCH 27 L (28-32) pg MCHC 33 (32-34) % RDW 14.6 (13.2-15.2) % Plt Count 242 (140-440) K/mm3 Add Manual Diff Complete Total Counted 100 Seg Neutrophils % Innersole Fitter Seg Neuts % (Manual) 31.0 L (40.0-70.0) % Band Neutrophils % 1.0 % Lymphocytes % (Manual) 59.0 H (13.4-35.0) % Monocytes % (Manual) 7.0 (0.0-7.3) % Eosinophils % (Manual) 2.0 (0.0-4.3) % Nucleated RBC % Not Reportable Seg Neutrophils # Man 1.7 L (1.8-7.7) K/mm3 Band Neutrophils # 0.1 K/mm3 Lymphocytes # (Manual) 3.3 (1.2-5.4) K/mm3 Abs React Lymphs (Man) 0.0 K/mm3 Monocytes # (Manual) 0.4 (0.0-0.8) K/mm3 Eosinophils # (Manual) 0.1 (0.0-0.4) K/mm3 Basophils # (Manual) 0.0 (0.0-0.1) K/mm3 Metamyelocytes # 0.0 K/mm3 Myelocytes # 0.0 K/mm3 Promyelocytes # 0.0 K/mm3 Blast Cells # 0.0 K/mm3 WBC Morphology Not Reportable Hypersegmented Neuts Not Reportable Hyposegmented Neuts Not Reportable Hypogranular Neuts Not Reportable Smudge Cells Not Reportable Toxic Granulation Not Reportable Toxic Vacuolation Not Reportable Dohle Bodies Not Reportable Pelger-Huet Anomaly Not Reportable Tasha Rods Not Reportable Platelet Estimate Consistent w auto Clumped Platelets Not Reportable Plt Clumps, EDTA Not Reportable Large Platelets Not Reportable Giant Platelets Not Reportable Platelet Satelliting Not Reportable Plt Morphology Comment Not Reportable RBC Morphology Normal Dimorphic RBCs Not Reportable Polychromasia Not Reportable Hypochromasia Not Reportable Poikilocytosis Not Reportable Anisocytosis Not Reportable Microcytosis Not Reportable Macrocytosis Not Reportable Spherocytes Not Reportable Pappenheimer Bodies Not Reportable Sickle Cells Not Reportable Target Cells Not Reportable Tear Drop Cells Not Reportable Ovalocytes Not Reportable Helmet Cells Not Reportable Garcia-Red Wing Bodies Not Reportable [place] Rings Not Reportable [place]alla Cells Not Reportable Bite Cells Not Reportable Crenated Cell Not Reportable Elliptocytes Not Reportable Acanthocytes (Spur) Not Reportable Rouleaux Not Reportable Hemoglobin C Crystals Not Reportable Schistocytes Not Reportable Malaria parasites Not Reportable [place] Bodies Not Reportable Hem Pathologist Commnt No Sodium 139 (137-145) mmol/L Potassium 3.6 (3.6-5.0) mmol/L Chloride 101.5 (98-107) mmol/L Carbon Dioxide 25 (22-30) mmol/L Anion Gap 16 mmol/L BUN 40 H (9-20) mg/dL Creatinine 1.8 H (0.8-1.3) mg/dL Estimated GFR 47 ml/min BUN/Creatinine Ratio 22 % Glucose 99 (75-100) mg/dL Calcium 8.8 (8.4-10.2) mg/dL Total Bilirubin 0.50 (0.1-1.2) mg/dL AST 30 (5-40) units/L ALT 31 (7-56) units/L Alkaline Phosphatase 67 (35-129) units/L Troponin T < 0.010 (0.00-0.029) ng/mL Total Protein 7.5 (6.3-8.2) g/dL Albumin 3.9 (3.9-5) g/dL Albumin/Globulin Ratio 1.1 % TSH 1.560 (0.270-4.200) mlU/mL 01/22/21 Range/Units 16:27 WBC (4.5-11.0) K/mm3 RBC (3.65-5.03) M/mm3 Hgb (11.8-15.2) gm/dl Hct (35.5-45.6) % MCV (84-94) fl MCH (28-32) pg MCHC (32-34) % RDW (13.2-15.2) % Plt Count (140-440) K/mm3 Add Manual Diff Total Counted Seg Neutrophils % Seg Neuts % (Manual) (40.0-70.0) % Band Neutrophils % % Lymphocytes % (Manual) (13.4-35.0) % Monocytes % (Manual) (0.0-7.3) % Eosinophils % (Manual) (0.0-4.3) % Nucleated RBC % Seg Neutrophils # Man (1.8-7.7) K/mm3 Band Neutrophils # K/mm3 Lymphocytes # (Manual) (1.2-5.4) K/mm3 Abs React Lymphs (Man) K/mm3 Monocytes # (Manual) (0.0-0.8) K/mm3 Eosinophils # (Manual) (0.0-0.4) K/mm3 Basophils # (Manual) (0.0-0.1) K/mm3 Metamyelocytes # K/mm3 Myelocytes # K/mm3 Promyelocytes # K/mm3 Blast Cells # K/mm3 WBC Morphology Hypersegmented Neuts Hyposegmented Neuts Hypogranular Neuts Smudge Cells Toxic Granulation Toxic Vacuolation Dohle Bodies Pelger-Huet Anomaly Tasha Rods Platelet Estimate Clumped Platelets Plt Clumps, EDTA Large Platelets Giant Platelets Platelet Satelliting Plt Morphology Comment RBC Morphology Dimorphic RBCs Polychromasia Hypochromasia Poikilocytosis Anisocytosis Microcytosis Macrocytosis Spherocytes Pappenheimer Bodies Sickle Cells Target Cells Tear Drop Cells Ovalocytes Helmet Cells Garcia-Red Wing Bodies Barrington Rings Molalla Cells Bite Cells Crenated Cell Elliptocytes Acanthocytes (Spur) Rouleaux Hemoglobin C Crystals Schistocytes Malaria parasites [place] Bodies Hem Pathologist Commnt Sodium (137-145) mmol/L Potassium (3.6-5.0) mmol/L Chloride (98-107) mmol/L Carbon Dioxide (22-30) mmol/L Anion Gap mmol/L BUN (9-20) mg/dL Creatinine (0.8-1.3) mg/dL Estimated GFR ml/min BUN/Creatinine Ratio % Glucose (75-100) mg/dL Calcium (8.4-10.2) mg/dL Total Bilirubin (0.1-1.2) mg/dL AST (5-40) units/L ALT (7-56) units/L Alkaline Phosphatase (35-129) units/L Troponin T < 0.010 (0.00-0.029) ng/mL Total Protein (6.3-8.2) g/dL Albumin (3.9-5) g/dL Albumin/Globulin Ratio % TSH (0.270-4.200) mlU/mL - EKG Data -: EKG Interpreted by Me - EKG Data When compared to previous EKG there are: changes noted (Previous EKG from 03/07/2020 is a sinus bradycardia, otherwise unchanged) Interpretation: other (Junctional rhythm, normal axis, J-point elevation to the septal and anterior leads. No ST elevation PA) - Radiology Data Radiology results: report reviewed CT HEAD WITHOUT CONTRAST INDICATION / CLINICAL INFORMATION: blurred vision. TECHNIQUE: Axial imaging performed from the skull apex through the skull base without the use of contrast. Sagittal and coronal reformatted images. All CT scans at this location are performed using CT dose reduction for ALARA by means of automated exposure control. COMPARISON: 01/12/2020 FINDINGS: CEREBRAL PARENCHYMA: No significant abnormality. No acute territorial infarct. HEMORRHAGE: None. EXTRA-AXIAL SPACES: Normal in size and morphology for the patient's age. VENTRICULAR SYSTEM: Normal in size and morphology for the patient's age. MIDLINE SHIFT OR HERNIATION: None. CEREBELLUM / BRAINSTEM: No significant abnormality. CALVARIUM: No significant abnormality. ORBITS: Normal as visualized. PARANASAL SINUSES / MASTOID AIR CELLS: Normal as visualized. SOFT TISSUES of HEAD: No significant abnormality. ADDITIONAL FINDINGS: None. IMPRESSION: Unremarkable noncontrast CT brain. No change since 01/12/2020. - Medical Decision Making This patient was sent in by his PCP when he went into see them regarding some recent blurry vision. In route, with EMS, the patient had a concerning EKG. Both this EKG, as well as the one done upon presentation, were shown to the supervisor toy assembly on-call who did not feel that it represents a STEMI or any signs of ischemic changes. On top of that, the patient has no chest pain, shortness of breath, back pain. On examination the patient also does not have any focal, motor or sensory deficits and his cranial nerves are intact. Heart and lung sounds are normal to auscultation. The patient does not appear in any respiratory or acute distress. CT scan of the head without contrast does not show any hemorrhage, large vessel occlusion, or any other acute process. Chest x-ray does not show any pneumonia, pleural effusions, pneumothorax, widened mediastinum, or any other acute process. Patient's labs have been unremarkable including CBC, metabolic panel, negative troponin x2, normal thyroid function. Initially the patient had some borderline hypotension so he was given some IV fluid resuscitation. The blood pressure normalized. The patient was reevaluated multiple times over multiple hours and states he is feeling greatly improved. He denies having any current blurry vision and has not for multiple hours. The patient is a 0 on the NIH stroke scale. For all these reasons he appears safe for discharge home at this time. He has been instructed to follow-up with his primary care physician. He has been given an outpatient referral for multiple different ophthalmologists. He will return to the emergency department with any worsening of his symptoms or with any acute distress. Critical Care Time: No Critical care attestation.: If time is entered above; I have spent that time in minutes in the direct care of this critically ill patient, excluding procedure time. ED Disposition Clinical Impression: Blurred vision Disposition: 01 HOME / SELF CARE / HOMELESS Is pt being admited?: No Condition: Stable Instructions: Blurred Vision, Adult Additional Instructions: Please follow-up with Dr. Stubbs in the next few days. I have given you multiple referrals for local computer service technician to follow-up regarding your blurred vision. Return to the emergency department with any worsening of your symptoms, new or concerning symptoms not addressed during this current emergency department visit, or with any acute distress. Referrals: CORY STUBBS MD [Staff Physician] - 3-5 Days MOLLY CORRALES MD [Staff Physician] - 3-5 Days [facility] [Provider Group] - 3-5 Days JANESSA PARADA MD [Staff Physician] - 3-5 Days Time of Disposition: 17:39
[2021-01-22] MEDS: SODIUM CHLORIDE 0.9% 1000 ML 1,000 ML IV ONE (13:30)
--- NOTE | 2021-01-22 13:50 | XRay Report ---
CHEST 1 VIEW 01/22/2021 1:22 PM INDICATION / CLINICAL INFORMATION: CP. COMPARISON: Chest x-ray 03/07/2020 FINDINGS: SUPPORT DEVICES: None. HEART / MEDIASTINUM: No significant abnormality. LUNGS / PLEURA: No significant pulmonary or pleural abnormality. No pneumothorax. ADDITIONAL FINDINGS: No significant additional findings. IMPRESSION: 1. No acute findings. Signer Name: Buster Suarez MD Signed: 01/22/2021 1:46 PM Workstation Name: [id number]
[2021-01-22 14:20] LABS: Hematocrit 43.1 % (35.5-45.6); Mean Corpuscular HGB Conc 33 % (32-34); Mean Corpuscular Volume 84 fl (84-94); Platelet Count 242 K/mm3 (140-440); Red Blood Count 5.12 M/mm3 (3.65-5.03); Red Cell Distribution Width 14.6 % (13.2-15.2)
[2021-01-22 14:43] LABS: Alanine Aminotransferase 31 units/L (7-56); Albumin 3.9 g/dL (3.9-5); BUN/Creatinine Ratio 22; Blood Urea Nitrogen 40 mg/dL (9-20); Calcium 8.8 mg/dL (8.4-10.2); Hemolysis Index 8
--- NOTE | 2021-01-22 15:16 | Cat Scan Report ---
CT HEAD WITHOUT CONTRAST INDICATION / CLINICAL INFORMATION: blurred vision. TECHNIQUE: Axial imaging performed from the skull apex through the skull base without the use of cont rast. Sagittal and coronal reformatted images. All CT scans at this location are performed using CT dose reduction for ALARA by means of automated exposure control. COMPARISON: 01/12/2020 FINDINGS: CEREBRAL PARENCHYMA: No significant abnormality. No acute territorial infarct. HEMORRHAGE: None. EXTRA-AXIAL SPACES: Normal in size and morphology for the patient's age. VENTRICULAR SYSTEM: Normal in size and morphology for the patient's age. MIDLINE SHIFT OR HERNIATION: None. CEREBELLUM / BRAINSTEM: No significant abnormality. CALVARIUM: No significant abnormality. ORBITS: Normal as visualized. PARANASAL SINUSES / MASTOID AIR CELLS: Normal as visualized. SOFT TISSUES of HEAD: No significant abnormality. ADDITIONAL FINDINGS: None. IMPRESSION: Unremarkable noncontrast CT brain. No change since 01/12/2020. Signer Name: Luis Felipe Gambino Jr, MD Signed: 01/22/2021 3:12 PM Workstation Name: [id number]
[2021-01-22 16:43] LABS: Band Neutrophils # (Manual) 0.1 K/mm3; Platelet Estimate Consistent w Auto; RBC Morphology Normal; Total Cells Counted 100
[2021-01-22 18:12] VITALS: BP 137/85
--- NOTE | 2021-01-24 08:38 | Electrocardiograph Report ---
[facility] Test Date: 2021-01-22 Test Time: 13:10:14 Pat Name: MAXIMILIANO RIVERA Department: Room: Gender: M Mover: RAMÓN : 1960 Requested By: FATUMA MARTÍNEZ Order Number: [id number] Reading MD: Abhi Shearer Measurements Intervals [place] Rate: 66 P: NE: QRS: 13 QRSD: 95 T: -3 QT: 398 QTc: 418 Interpretive Statements Junctional rhythm Anterior infarct, possibly acute No previous ECG available for comparison Electronically Signed On 01-24-2021 8:38:09 EST by Abhi Shearer
== END 2021-01-22 18:12 | disposition home or self-care (01) ==
LOC: ED 13:08
DX: H57.89 Other specified disorders of eye and adnexa (principal); I10 Essential (primary) hypertension
CPT/HCPCS: 36415; 70450; 71045; 80053; 84443; 84484; 85007; 85025; 93005; 96360; 99285; J7030; Q0162